=== PATIENT | female | born 1985 | race Caucasian/White ===

== ENCOUNTER → 2018-04-13 09:46 | Outpatient (CLI) | payer OTHER, SELFPAY ==
--- NOTE | 2018-04-13 | DI.US.S_ITS ---
PROCEDURE: US ARTERIAL DUPLEX LE BI INDICATIONS: OTHER SPECIFIED DISORDERS OF VEINS TECHNIQUE: Color and pulse Doppler interrogation was performed of both lower extremity arterial systems, with image documentation. COMPARISON: None. FINDINGS: Right lower extremity: Common femoral artery: 134 cm/sec, with triphasic flow. Deep femoral artery: 128 cm/sec, with triphasic flow. Proximal superficial femoral artery: 119 cm/sec, with triphasic flow. Mid superficial femoral artery: 113 cm/sec, with triphasic flow. Distal superficial femoral artery: 100 cm/sec, with triphasic flow. Popliteal artery: 63 cm/sec, with triphasic flow. Posterior tibial artery: 67 cm/sec, with triphasic flow. Anterior tibial artery/dorsalis pedis: 65 cm/sec, with triphasic flow. Granda-scale imaging description: No atheromatous plaque or hemodynamically significant stenosis. Left lower extremity: Common femoral artery: 159 cm/sec, with triphasic flow. Deep femoral artery: 113 cm/sec, with phasic flow. Proximal superficial femoral artery: 126 cm/sec, with triphasic flow. Mid superficial femoral artery: 111 cm/sec, with triphasic flow. Distal superficial femoral artery: 93 cm/sec, with triphasic flow. Popliteal artery: 65 cm/sec, with triphasic flow. Posterior tibial artery: 85 cm/sec, with triphasic flow. Anterior tibial artery/dorsalis pedis: 107 cm/sec, with biphasic flow. Granda-scale imaging description: No atheromatous plaque or hemodynamically significant stenosis. IMPRESSION: No sonographic evidence for hemodynamic significant stenosis. No findings to explain chronic swelling. Dictated by: Aster Palma M.D. on 04/13/2018 at 14:18 Approved by: Aster Palma M.D. on 04/13/2018 at 14:21
--- NOTE | 2018-04-13 | DI.US.S_ITS ---
PROCEDURE: US PERIPH VENOUS LOW EXTREM BI INDICATIONS: OTHER SPECIFIED DISORDERS OF VEINS TECHNIQUE: Real-time imaging, as well as color and pulse Doppler interrogation, were performed of the deep veins of both legs from the inguinal ligament to the popliteal fossa. COMPARISON: None. FINDINGS: The deep veins are normally compressible, and free of intraluminal thrombus. Color and pulse Doppler demonstrate normal phasic intravascular flow. There is normal augmentation response to distal compression maneuver. IMPRESSION: No deep venous thrombosis identified within either the left or right lower extremities. Dictated by: Don De Anda [facility] Interpreted: Stanley Peñaloza MD on 04/13/2018 at 11:29 Approved by: Stanley Peñaloza M.D. on 04/13/2018 at 12:21
== END ==
PROVIDERS: Visit Provider Family Medicine
DX: I87.8 Other specified disorders of veins (principal)
CPT/HCPCS: 93925; 93970

== ENCOUNTER → 2021-06-03 13:22 | Outpatient (CLI) | payer OTHER, SELFPAY ==
--- NOTE | 2021-06-03 | DI.ECHO.S_ITS ---
[facility]---------+ [facility] +---------+ : : [address] : : : : [id number] : : : : Phone: [phone] Echocardiogram Report + + :Name: PADMAJA THOMAS Study Date: 06/03/2021 Height: 71 in : :[facility] ReadingLocation: Weight: 300 lb : : Gender: Female BSA: 2.5 m2 : :: 1985 Age: 35 yrs BP: 151/98 mmHg: :Reason For Study: CARDIOMYOPAHTY : :Ordering Physician: JOSE MARTIN, : :RAFAEL Performed By: Ebony Martinez : :Referring: RAFAEL MACIAS : + + Interpretation Summary 1) Normal left ventricular thickness, size, wall motion, and systolic function (EF 55-60%). 2) Normal right ventricular size and function. 3) No significant valvular abnormalities. 4) Hypertension present during the study (BP 151/98mm Hg). 5) Compared to the Echo done 01/10/2020, LVEF has improved from 45-50% to 55- 60% on this study. Procedure: A two-dimensional transthoracic echocardiogram with color flow and Doppler was performed. The study quality was technically adequate. Comparison is made with the echocardiogram of 01/10/2020. The patient was in sinus rhythm with heart rates between 64-74 bpm during the exam. Left Ventricle: The left ventricle is normal in size and wall thickness. The ejection fraction is estimated to be 55-60%. Left ventricular systolic function appears normal without focal wall motion abnormalities. Diastolic parameters suggest probable normal left ventricular diastolic function and normal filling pressures. Right Ventricle: The right ventricle is normal in size and function. Atria: The left atrial size is normal. Right atrial size is normal. There is no Doppler evidence for an interatrial shunt. Mitral Valve: The mitral valve is normal in structure and function. There is no mitral regurgitation. Aortic Valve: The aortic valve is trileaflet. The aortic valve opens well. There is no aortic valve stenosis. No aortic regurgitation is present. Tricuspid Valve: The tricuspid valve is normal in structure and function. There is trace tricuspid regurgitation. Pulmonary artery pressures cannot be estimated because of the lack of a measurable TR jet velocity. Pulmonic Valve: The pulmonic valve leaflets are thin and pliable; valve motion is normal. There is no pulmonic valvular regurgitation. Great Vessels: The aortic root is normal size. The dimensions of the ascending aorta are normal. The IVC is of normal diameter and collapses greater than 50% with a sniff. This suggests a low right atrial pressure of 3 mm Hg. Pericardium/ Pleura There is no pericardial effusion. There is no pleural effusion. MMode/2D Measurements & Calculations LVIDd: 5.6 cm LVOT diam: 2.0 cm LVIDs: 3.6 cm Ao root diam: 2.8 cm FS: 35.6 % asc Aorta Diam: 2.9 cm IVSd: 0.69 cm Ao Arch Diam (Prox Trans): 2.7 cm LVPWd: 0.85 cm LV artis. diameter/BSA (cm/m^2): 2.2 LV sys. diameter/BSA (cm/m^2): 1.4 LA A2 area: 21.2 cm2 RA long axis: 5.4 cm LA A4 area: 20.3 cm2 RA area: 18.6 cm2 LA length (vol): 5.3 cm RA vol: 54.6 ml LA vol: 68.6 ml RA : 21.8 ml/m2 LA vol index: 27.4 ml/m2 IVC diam: 1.6 cm RVD1 (basal): 3.4 cm RVD2 (mid): 3.0 cm TAPSE: 2.5 cm Doppler Measurements & Calculations Ao V2 max: 140.0 cm/sec LVOT Max Michael: 96.2 cm/sec Ao V2 mean: 104.5 cm/sec LV V1 max P.7 mmHg Ao max P.8 mmHg LV V1 VTI: 20.3 cm Ao mean P.7 mmHg JOE(I,D): 2.0 cm2 Ao V2 VTI: 33.0 cm JOE(V,D): 2.2 cm2 sev ratio: 0.62 JOE indexed to BSA (cm^2/m^2): 0.80 MV E max michael: 90.7 cm/sec PA V2 max: 127.9 cm/sec MV A max michael: 42.8 cm/sec PA V2 mean: 83.9 cm/sec MV E/A: 2.1 PA mean P.2 mmHg Med Peak E' Michael: 13.3 cm/sec PA pr(Accel): 31.0 mmHg E/E' med: 6.8 Lat Peak E' Michael: 15.2 cm/sec E/E' lat: 6.0 E/e' average: 6.4 MV dec time: 0.30 sec SV(LVOT): 66.2 ml Reading Physician:04:12 PM
== END ==
PROVIDERS: PCP Family Medicine; Referring Provider Internal Medicine Cardiovascular Disease; Visit Provider Internal Medicine Cardiovascular Disease
DX: I42.9 Cardiomyopathy, unspecified (principal)
CPT/HCPCS: 93306

== ENCOUNTER 2021-08-15 17:03 | Emergency (ER) | payer OTHER, SELFPAY ==
[2021-08-15 17:06] VITALS: BP 161/88; PULSE 91; RESP 20; TEMP 36.6; O2SAT 100
--- NOTE | 2021-08-15 18:01 | DI.US.S_ITS ---
PROCEDURE: US OB <= 14 WEEKS FETUS INDICATIONS: UNKNOWN DATES WITH BLEEDING TECHNIQUE: Real-time scanning was performed of the fetus and maternal pelvic organs, with image documentation. Endovaginal scanning was also performed to better visualize the fetus and maternal ovaries. COMPARISON: None. FINDINGS: Embryo: No intrauterine gestational sac can be seen. Maternal organs: The right ovary measures 3.6 x 2.5 x 1.6 cm. The left ovary measures 2.9 x 1.6 x 2.6 cm. The ovaries have a normal sonographic appearance, with note made of a presumed corpus luteum involving the left ovary that measures up to 1.5 cm. Normal appearing arterial waveforms are confirmed to each ovary. Within the left adnexal region, there are 2 anechoic lesions without abnormal vascularity that measure up to 16 mm and up to 20 mm. The uterus measures 7.5 x 4.5 x 3.5 cm, with endometrial stripe thickness of 8 mm. IMPRESSION: No findings of an intrauterine can be seen. Simple appearing cysts are seen involving the left adnexal region, which are not suspicious for ectopic by themselves. As ectopic remains within the differential, close clinical followup, with serial beta-hCG and serial ultrasound are recommended, if clinically appropriate. We strive to produce accurate, complete, and clear reports of imaging services. To assist us in improving patient care, this report was composed using standard report templates and voice recognition software. Therefore, it may contain abnormal punctuation, insertions and/or omissions. Occasional wrong-word or sound-alike substitutions may occur. Though we review the report and make efforts to correct it, we do recommend that the report be read carefully in proper context to recognize any text inaccuracies. Dictated by: Tima Edwards M.D. on 08/15/2021 at 18:25 Approved by: Tima Edwards M.D. on 08/15/2021 at 18:27
--- NOTE | 2021-08-15 18:09 | ED_ITS ---
HPI - General Adult General Chief complaint: Vaginal Bleeding Stated complaint: Bleeding, found out earlier this week Time Seen by Provider: 08/15/21 17:16 Source: patient Mode of arrival: Ambulatory Limitations: no limitations History of Present Illness HPI narrative: Patient is a 35-year-old female. History of cardiomyopathy and high blood pressure. Is on metoprolol. Is a at approximately 4-5 weeks EGA. Has had a positive test at home and has had a positive ?blood test ?that was ordered by her primary provider. She states for the past week she has had light spotting and then for the past 24 hours has had heavier bleeding that is consistent with a menstrual cycle. No chest pain. No shortness of breath. No headache. No abdominal pain. No urinary symptoms. No change in bowel habits. No fevers. Review of Systems Constitutional Constitutional: Reports system reviewed and no additional complaints, except as documented Cardiovascular Cardiovascular: Reports system reviewed and no additional complaints, except as documented Respiratory Respiratory: Reports system reviewed and no additional complaints, except as documented Gastrointestinal Gastrointestinal: Reports as per HPI and Reports system reviewed and no additional complaints, except as documented Genitourinary Genitourinary: Reports system reviewed and no additional complaints, except as documented and Reports as per HPI Integumentary/Breasts Skin/Breast: Reports system reviewed and no additional complaints, except as documented Hematologic/Lymphatic On Anticoagulants: No Patient History Medical History Cardiomyopathy Hypertension Social History marital status: Exam Initial Vital Signs Initial Vital Signs: Vital Signs Temperature 97.8 F 08/15/21 17:06 Pulse Rate 91 H 08/15/21 17:06 Respiratory Rate 20 08/15/21 17:06 Blood Pressure 161/88 H 08/15/21 17:06 Pulse Oximetry 100 08/15/21 17:06 HENMT Head: normal to inspection and normocephalic Resp Effort & Inspection: normal respiratory effort Cardio Rate: regular rate GI Inspection: normal to inspection Skin General: no rashes or lesions noted Neuro General: patient alert, patient awake and moves all extremities Course Orders Ordered: ED Orders 08/15/21 17:30 ABO RH Type Stat Basic Metabolic Panel Stat Complete Blood Count AUTO DIFF Stat HCG Quantitative /Beta subunit Stat 08/15/21 18:01 OB <= 14 weeks fetus Stat Vital Signs Vital signs: Vital Signs - 8 hr 08/15/21 17:06 Temperature 97.8 F Pulse Rate 91 H Respiratory Rate 20 Blood Pressure 161/88 H Pulse Oximetry 100 Medical Decision Making Lab Data Lab results reviewed: Yes I reviewed the patient's lab results. Result diagrams: 08/15/21 17:30 08/15/21 17:30 Labs: Lab Results 08/15/21 08/15/21 08/15/21 Range/Units 17:30 17:30 17:30 WBC 7.3 (4.5-11.0) X10^3/uL RBC 4.87 (4.0-5.2) X10^6/uL Hgb 14.1 (12.0-16.0) g/dL Hct 41.4 (36-46) % MCV 85.1 (80-100) fL MCH 29.1 (26-34) PG MCHC 34.1 (30-36) % RDW 14.1 (11.6-14.8) % Plt Count 378 (150-400) X10^3/uL Neut % (Auto) 67.0 (50-75) % Lymph % (Auto) 23.4 L (25-40) % Hawkins % (Auto) 6.5 (3-14) % Eos % (Auto) 2.8 (2-4) % Baso % (Auto) 0.3 (0-2) % Neut # (Auto) 4900 (8372-2046) /uL Lymph # (Auto) 1700 (6801-0990) /uL Hawkins # (Auto) 500 (0-900) /uL Eos # (Auto) 200 (0-450) /uL Baso # (Auto) 0 (0-100) /uL Sodium 137 (137-145) mmol/L Potassium 3.9 (3.4-5.1) mmol/L Chloride 103 (98-107) mmol/L Carbon Dioxide 25 (22-32) mmol/L BUN 13 (7-17) mg/dL Creatinine 0.71 (0.52-1.04) mg/dL Estimated GFR > 60 (>60) mL/min BUN/Creatinine Ratio 18.3 (6-22) Glucose 150 H (70-100) mg/dL Calcium 9.2 (8.4-10.2) mg/dL HCG, Quant 33 mIU/mL Blood Type A Positive Imaging Data US - [employer] T[employer]MENT TECHNICIAN: Radiologist's Impression: [address] [address] Ultrasound Report Signed Patient: Francois Valdovinos MR#: [id number] : 1985 Acct:[id number] Age/Sex: 35 / F Date of Service: 08/15/21 Loc: ED Accession Number: [id number] ?? Procedure: US OB <= 14 weeks fetus Ordering Provider: Jones Benavides D.O. PROCEDURE:? US OB <= 14 WEEKS FETUS ? INDICATIONS:? UNKNOWN DATES WITH BLEEDING ? TECHNIQUE:? Real-time scanning was performed of the fetus and maternal pelvic organs, with image documentation.? Endovaginal scanning was also performed to better visualize the fetus and maternal ovaries.? ? COMPARISON:? None. ? FINDINGS:? ? Embryo:? No intrauterine gestational sac can be seen. ? Maternal organs:? The right ovary measures 3.6 x 2.5 x 1.6 cm. The left ovary measures 2.9 x 1.6 x 2.6 cm. The ovaries have a normal sonographic appearance, with note made of a presumed corpus luteum involving the left ovary that measures up to 1.5 cm.? Normal appearing arterial waveforms are confirmed to each ovary.? ? Within the left adnexal region, there are 2 anechoic lesions without abnormal vascularity that measure up to 16 mm and up to 20 mm. ? The uterus measures 7.5 x 4.5 x 3.5 cm, with endometrial stripe thickness of 8 mm. ? ? ? IMPRESSION:? No findings of an intrauterine can be seen. ? Simple appearing cysts are seen involving the left adnexal region, which are not suspicious for ectopic by themselves. ? As ectopic remains within the differential, close clinical followup, with serial beta-hCG and serial ultrasound are recommended, if clinically appropriate. ? We strive to produce accurate, complete, and clear reports of imaging services. To assist us in improving patient care, this report was composed using standard report templates and voice recognition software. Therefore, it may contain abnormal punctuation, insertions and/or omissions. Occasional wrong-word or sound-alike substitutions may occur. Though we review the report and make efforts to correct it, we do rec ommend that the report be read carefully in proper context to recognize any text inaccuracies. ? Dictated by: Tima Edwards M.D. on 08/15/2021 at 18:25 ? ? Approved by: Tima Edwards M.D. on 08/15/2021 at 18:27?? MDM Narrative Medical decision making narrative: Patient stated that she thought that she was approximately 4 weeks EGA. Rh positive. Her quantitative level today was 33 which is well below the threshold for expecting to see a intrauterine . The ultrasound shows no signs of an intrauterine which is not surprising given her quantitative level today. She had a quantitative level at the end of last week (greater than 48 hours ago). She does not know the exact level of this but she thought it was somewhere around 25. This is the case it certainly has not doubled in this chris unt of time. I have a high suspicion that this is a miscarriage. I did discuss this with the patient and her . The plan will be is for her to follow-up in 48 hours for another hCG quantitative level. She was given return precautions. She expressed understanding and agreement. Discharge Plan Departure Patient Disposition: Home Clinical Impression: Threatened miscarriage Instructions: DI for Vaginal Bleeding During Activity Restrictions/Additional Instructions: Continue to take all of your medications as directed. You do need follow-up in 48 hours for a repeat hCG quantitative level. This could be done by your OB provider or your primary provider. Return to the emergency department for any new or worsening symptoms. Referrals: Bella Nix DO [Primary Care Provider] -
--- NOTE | 2021-08-15 18:18 | PC.NURSE ---
positive test last week
[2021-08-15 18:21] LABS: Add Manual Diff / Slide Review NO; Basophils Absolute Auto 0 /uL (0-100); Basophils Percent Auto 0.3 % (0-2); Eosinophils Absolute Auto 200 /uL (0-450); Eosinophils Percent Auto 2.8 % (2-4); Hematocrit 41.4 % (36-46); Hemoglobin 14.1 g/dL (12.0-16.0); Lymphocytes Absolute Auto 1700 /uL (1100-4500); Lymphocytes Percent Auto 23.4 % (25-40); Mean Corpuscular HGB Conc 34.1 % (30-36); Mean Corpuscular Hemoglobin 29.1 PG (26-34); Mean Corpuscular Volume 85.1 fL (80-100); Monocytes Absolute Auto 500 /uL (0-900); Monocytes Percent Auto 6.5 % (3-14); Neutrophils Absolute Auto 4900 /uL (1500-7000); Platelet Count 378 X10^3/uL (150-400); Red Blood Cell Count 4.87 X10^6/uL (4.0-5.2); Red Cell Distribution Width 14.1 % (11.6-14.8); White Blood Cell Count 7.3 X10^3/uL (4.5-11.0)
[2021-08-15 18:26] LABS: BUN Creatinine Ratio 18.3 (6-22); Blood Urea Nitrogen 13 mg/dL (7-17); Calcium 9.2 mg/dL (8.4-10.2); Carbon Dioxide 25 mmol/L (22-32); Chloride 103 mmol/L (98-107); Estimated Glomerular Filt Rate > 60 mL/min (>60); Glucose 150 mg/dL (70-100); HEMOLYSIS < 15 (0-50); Potassium 3.9 mmol/L (3.4-5.1); Sodium 137 mmol/L (137-145)
[2021-08-15 18:47] LABS: HCG Quantitative /Beta subunit 33 mIU/mL
== END 2021-08-15 19:49 | disposition home or self-care (01) ==
PROVIDERS: Emergency Provider Emergency Medicine; PCP Family Medicine
DX: O20.0 Threatened abortion (principal)
CPT/HCPCS: 36415; 76801; 76830; 80048; 81003; 84702; 85025; 86900; 86901; 99283

== ENCOUNTER → 2023-08-30 15:38 | Outpatient (CLI) | payer OTHER, SELFPAY ==
--- NOTE | 2023-08-30 15:39 | DI.US.S_ITS ---
PROCEDURE: US PELVIC COMPLETE INDICATIONS: Pelvic Pain TECHNIQUE: Real-time scanning was performed of the pelvic organs, with image documentation. Additional endovaginal scanning was necessary due to incomplete visualization of the adnexal and endometrial structures by transabdominal scanning. COMPARISON: None. FINDINGS: Uterus: Uterus is anteverted and normal in size at 7.7 x 4.0 x 5.1 cm. The myometrium is homogeneous. The endometrium measures 7.3 mm combined thickness. Ovaries: The right ovary measures 1.4 x 2.5 x 1.6 cm, with a calculated ovarian volume of 3.1 cc. The left ovary measures 4.2 x 1.8 x 2.7 cm, with a calculated ovarian volume of 10.4 cc. The ovaries have a normal sonographic appearance. Less than 12 follicles can be seen in each ovary. No adnexal masses are seen. There is a simple 1.7 x 2.0 x 1.5 cm left ovarian cyst. Other: No pathologic free abdominal or pelvic fluid. IMPRESSION: 1. Simple left ovarian cyst which is within physiologic limits for size in a premenopausal female. 2. Otherwise unremarkable pelvic ultrasound. We strive to produce accurate, complete, and clear reports of imaging services. To assist us in improving patient care, this report was composed using standard report templates and voice recognition software. Therefore, it may contain abnormal punctuation, insertions and/or omissions. Occasional wrong-word or sound-alike substitutions may occur. Though we review the report and make efforts to correct it, we do recommend that the report be read carefully in proper context to recognize any text inaccuracies. Dictated by: Aster Palma M.D. on 08/30/2023 at 16:44 Approved by: Aster Palma M.D. on 08/30/2023 at 16:45
== END ==
PROVIDERS: PCP Family Medicine; Referring Provider Family Medicine; Visit Provider Family Medicine
DX: N83.292 Other ovarian cyst, left side (principal); R10.2 Pelvic and perineal pain
CPT/HCPCS: 76830; 76856; 93975

== ENCOUNTER 2024-02-19 11:23 | Day surgery (SDC) | payer OTHER, SELFPAY ==
--- NOTE | 2024-02-19 | PATH_ITS ---
[facility] Accession Number: [id number] No. of containers..01 Tissue . 01 Material submitted: . stomach - STOMACH . 01 Clinical history: . R/O HP . 01 Diagnosis: Stomach, biopsy: - Oxyntic and antral gastric mucosa with mild chronic gastritis. - No H. Pylori like organisms identified (by the H/E and immunohistochemical stained slide sections). - No intestinal metaplasia, dysplasia or malignancy identified. - See comment: -- COMMENT: H. Pylori immunohistochemical stain was performed to rule out H. Pylori per physician request and is negative. -- Technical Note: This test was developed, and the performance characteristics were validated by [facility]. It has not been cleared or approved by the Food and Drug Administration. TXN 02/22/2024 1206 Local . 01 Electronically signed: . Юлия Jasmine MD, Pathologist NPI- [id number] . 01 Gross description: . Received in formalin with two patient identifiers and stomach, are two ferrari soft tissue fragments both measuring 0.4 cm in greatest dimension. Submitted in cassette A1. ([id number]) /ELICIA 02/20/2024 0831 Local . 01 Pathologist provided ICD-10: K21.9 . 01 CPT . 392718, [id number] Specimen Comment: A courtesy copy of this report has been sent to [phone] Performed at: [address] [address], [place], [place] [id number] MD Alex Brock MD Phone: [phone]
[2024-02-19 11:46] VITALS: BP 137/83; PULSE 75; RESP 16; TEMP 36.3; O2SAT 99
--- NOTE | 2024-02-19 11:53 | P.HP_ITS ---
History of Present Illness History of Present Illness Chief complaint: SDC Narrative: Persistent GE reflux despite 20 mg Prilosec daily. Rule out underlying peptic disease. [facility] Medical History Cardiomyopathy Hypertension Social History marital status: Meds Home Medications and Allergies Home Medications Medication Instructions Recorded Confirmed Type metoprolol succinate 100 mg 100 mg PO BID 02/19/24 02/19/24 History tablet,extended release 24 hr Exam Narrative Exam Narrative: Oropharynx free of lesion Assessment & Plan Assessment & Plan narrative: Persistent symptoms despite Prilosec need for EGD. Risks, benefits, alternatives have been explained. Time-Based Coding :: [TOTAL MINUTES] spent with patient and on the chart (including review of chart, obtaining history, exam, reviewing outside data, placing orders, documenting exam and treatment plan, and counseling patient) on [DATE].
--- NOTE | 2024-02-19 11:54 | P.OP.EGD_ITS ---
Operative Date/Time/Diagnoses Date of procedure: 02/19/24 Pre-op diagnosis: See indication and findings Procedure & Clinicians Study performed: EGD Indications: Persistent GE reflux despite PPI Surgeon: Ernesto Thurston Procedure Notes Procedure in detail: After informed consent was obtained the patient was placed in left lateral decubitus position. The video upper endoscopy was placed into the oropharynx and with the patient's help swallowed into the esophagus. The esophagus stomach and duodenal were carefully examined. On withdrawal, retroflexed view the GE junction was performed. The scope was removed. The patient tolerated procedure well. Blood loss none Complications none Sedation mac Findings 1. Completely normal esophagus though with moderate gaping of the lower esophageal sphincter 2. Patchy erythema in the stomach biopsies taken to rule out Helicobacter 3. Normal duodenal bulb and sweep Patient to stay on current medication and discuss with primary dentofacial orthopedics dentist.
[2024-02-19 12:26] VITALS: BP 132/94; PULSE 103; RESP 26; TEMP 36.3; O2SAT 94
[2024-02-19 12:32] VITALS: BP 142/91; PULSE 87; RESP 13; O2SAT 96
[2024-02-19 12:37] VITALS: BP 127/93; PULSE 76; RESP 16; O2SAT 99
== END 2024-02-19 12:50 | disposition home or self-care (01) ==
PROVIDERS: PCP Family Medicine; Referring Provider Internal Medicine Gastroenterology; Visit Provider Internal Medicine Gastroenterology
PROC: 0DJ08ZZ Inspection of Upper Intestinal Tract, Via Natural or Artificial Opening Endoscopic (ICD-10-PCS; CPT 43239; principal; 2024-02-19 12:30)
DX: K21.9 Gastro-esophageal reflux disease without esophagitis (principal); K29.50 Unspecified chronic gastritis without bleeding
CPT/HCPCS: 43239; J2704

== ENCOUNTER → 2024-02-21 06:39 | Outpatient (CLI) | payer OTHER, SELFPAY ==
--- NOTE | 2024-02-21 06:40 | DI.US.S_ITS ---
PROCEDURE: US ABDOMEN LIMITED INDICATIONS: RUQ PAIN TECHNIQUE: Real-time scanning was performed of the abdominal and retroperitoneal organs, with image documentation. COMPARISON: None. FINDINGS: Liver: Liver is normal in size and homogeneous in echotexture. Gallbladder: Gallbladder is normal in sonographic appearance without gallstones, gallbladder wall thickening, pericholecystic fluid, or abnormal sonographic Orantes's. Biliary ducts: Intrahepatic bile ducts are non-dilated. Extrahepatic bile duct caliber measures 6 mm. Normal is 6-7 mm or less in diameter, or 10 mm or less post-cholecystectomy. Pancreas: Visualized portions of the pancreas are sonographically normal. Miscellaneous: No free abdominal fluid. IMPRESSION: Normal sonographic evaluation of the right upper abdomen. Dictated by: Norris Abraham M.D. on 02/21/2024 at 10:43 Approved by: Norris Abraham M.D. on 02/21/2024 at 10:44
== END ==
PROVIDERS: PCP Family Medicine; Referring Provider Family Medicine; Visit Provider Family Medicine
DX: R10.10 Upper abdominal pain, unspecified (principal)
CPT/HCPCS: 76705